=== PATIENT | female | born 1950 | race African-American/Black ===

== ENCOUNTER 2017-08-25 12:10 | Emergency (ER) | payer OTHER ==
[~2017-08-25] VITALS: Ht 167.6 cm; Wt 131.1 kg
--- NOTE | ~2017-08-25 | EKG ---
[place] [address] [address] [facility] [place] [address] ELECTROCARDIOGRAM REPORT Name: JACKSON APPIAH [id number] Admission: 08/25/17 Attend Phys: Discharge: Date of : 54 Report #: [id number] THIS REPORT FOR: //name// [facility] ED Test Date: 2017-08-25 Test Time: 13:08:25 Pat Name: JACKSON APPIAH Department: Room: Gender: F Window Clerk: KELVINJOSEFA : 1950 Requested By: Shahid Parr Order Number: [id number] MD: Emil Lemons Measurements Intervals [place] Rate: 65 P: 41 [place]: 158 QRS: 9 QRSD: 96 T: 17 QT: 437 QTc: 455 Interpretive Statements Sinus rhythm No significant abnormality No previous ECG available for comparison Electronically Signed On 08-25-2017 17:18:51 EXPERIENCE DESIGN DIRECTOR by Emil Lemons [email or web address] <ELECTRONICALLY SIGNED> By: Emil Lemons MD, [facility] 08/25/17 1718 1308 1308 Emil Lemons MD, FACC /EPI
[~2017-08-25 12:10] MED LIST: BAYER CHEWABLE81 MG PO; CYCLOBENZAPRINE5 MG PO; HUMALOG100 UNIT/1 SUBQ; HYDROCHLOROTHIA25 M2 PO; LANTUS100 UNIT/M SUBQ; LISINOPRIL30 MG PO; LOVASTATIN 20 M20 MG PO; METFORMIN HCL500 MG PO; NEURONTIN 300300 M1 PO; OMEPRAZOLE20 M2 PO
[2017-08-25 13:03] LABS: BASOPHILS 1.1 % (0.0-2.0); HEMATOCRIT 34.3 % (37.0-47.0); HEMOGLOBIN 11.1 gm/dL (12.0-15.0); LYMPHOCYTES 41.2 % (24.0-44.0); MCH 28.2 pg (26.0-34.0); MCHC 32.4 g/dL (28.0-37.0); MCV 87.2 fL (80.0-100.0); MONOCYTES 5.9 % (1.0-8.0); PLATELET COUNT 216 thou/uL (150-400); POLYS 49.8 % (36.0-66.0); RBC 3.93 mil/uL (4.20-5.00); RDW 14.1 % (10.5-14.5)
[2017-08-25 13:12] LABS: ANION GAP 7 mmol/L (7-16); BUN 13 mg/dL (7-18); CALCIUM 9.1 mg/dL (8.5-10.1); CHLORIDE 102 mmol/L (98-107); CO2 31 mmol/L (21-32); CREATININE 0.9 mg/dL (0.6-1.0); GLUCOSE 128 mg/dL (74-106); POTASSIUM 3.8 mmol/L (3.5-5.1); SODIUM 140 mmol/L (136-145)
[2017-08-25 13:21] LABS: TROPONIN-I < 0.04 ng/mL (<0.06)
[2017-08-25] MEDS ORDERED: CARVEDILOL12.5 MG PO (13:32)
[2017-08-25] MEDS ORDERED: ATORVASTATIN CA40 MG PO (13:32)
[2017-08-25] MEDS ORDERED: LOSARTAN-HCTZ1 EAC1 PO (13:33)
== END 2017-08-25 15:00 | disposition home or self-care (01) ==
LOC: ER 12:10
PROVIDERS: Emergency Medicine
DX: I10 Essential (primary) hypertension (principal); E11.9 Type 2 diabetes mellitus without complications; Z88.6 Allergy status to analgesic agent; Z91.040 Latex allergy status; Z79.4 Long term (current) use of insulin; Z90.710 Acquired absence of both cervix and uterus

== ENCOUNTER 2017-11-01 05:17 | Emergency (ER) | payer OTHER ==
[~2017-11-01] VITALS: Ht 167.6 cm; Wt 113.4 kg
[~2017-11-01 05:17] MED LIST changes: +ATORVASTATIN CA40 MG PO; +CARVEDILOL12.5 MG PO; +LOSARTAN-HCTZ1 EAC1 PO
[2017-11-01] MEDS ORDERED: ATENOLOL 100MG100 MG PO (05:39)
[2017-11-01 05:46] LABS: ABSOLUTE NEUTROPHILS 5.2 thou/uL (1.4-8.2); BASOPHILS 0.4 % (0.0-2.0); EOSINOPHILS 0.4 % (0.0-3.0); HEMOGLOBIN 12.1 gm/dL (12.0-15.0); LYMPHOCYTES 13.9 % (24.0-44.0); MCH 28.5 pg (26.0-34.0); MCHC 32.7 g/dL (28.0-37.0); PLATELET COUNT 221 thou/uL (150-400); POLYS 81.3 % (36.0-66.0); RBC 4.25 mil/uL (4.20-5.00); RDW 14.7 % (10.5-14.5); WBC 6.4 thou/uL (4.0-11.0)
[2017-11-01 05:57] LABS: ANION GAP 7 mmol/L (7-16); BUN 15 mg/dL (7-18); CALCIUM 9.4 mg/dL (8.5-10.1); CHLORIDE 105 mmol/L (98-107); CO2 30 mmol/L (21-32); GLUCOSE 76 mg/dL (74-106); POTASSIUM 3.7 mmol/L (3.5-5.1); SODIUM 142 mmol/L (136-145)
[2017-11-01 06:03] LABS: ALBUMIN 3.8 g/dL (3.4-5.0); DIRECT BILIRUBIN < 0.1 mg/dL (<0.1-0.3); LIPASE 67 U/L (73-393); SGOT 14 U/L (15-37); SGPT 21 U/L (30-65); TOTAL BILIRUBIN 0.2 mg/dL (<0.1-1.0); TOTAL PROTEIN 8.3 g/dL (6.4-8.2)
[2017-11-01 07:46] LABS: URINE BILIRUBIN NEGATIVE (Negative); URINE BLOOD 2+ (Negative); URINE CLARITY CLEAR; URINE COLOR YELLOW; URINE GLUCOSE-RANDOM* NEGATIVE (Negative); URINE KETONES NEGATIVE (Negative); URINE LEUKOCYTES-REFLEX NEGATIVE (Negative); URINE NITRITE-REFLEX NEGATIVE (Negative); URINE PROTEIN (DIPSTICK) TRACE (Negative); URINE UROBILINOGEN 0.2 E.U./dl (0.2-1.0)
[2017-11-01 08:24] VITALS: BP 147/71
[2017-11-01 08:33] LABS: BACTERIA-REFLEX 1-9 Few /HPF (None Seen); CASTS None Seen /LPF (None Seen); CRYSTALS None Seen /LPF (None Seen); SQUAMOUS 4-10 Moderate /LPF (0-3); URINE RBC 0-2 Rare /HPF (0-2); URINE WBC-REFLEX 0-5 Rare /HPF (0-5)
== END 2017-11-01 08:27 | disposition home or self-care (01) ==
LOC: ER 05:17
PROVIDERS: Emergency Medicine
DX: E11.649 Type 2 diabetes mellitus with hypoglycemia without coma (principal); I10 Essential (primary) hypertension; Z90.710 Acquired absence of both cervix and uterus; Z88.6 Allergy status to analgesic agent; Z91.040 Latex allergy status; Z79.4 Long term (current) use of insulin

== ENCOUNTER 2018-07-01 19:42 | Emergency (ER) | payer OTHER ==
[~2018-07-01] VITALS: Ht 167.6 cm; Wt 79.4 kg
[~2018-07-01 19:42] MED LIST changes: +ATENOLOL 100MG100 MG PO
[2018-07-01] MEDS ORDERED: NORFLEX100 MG PO (20:52)
[2018-07-01] MEDS ORDERED: PREDNISONE 20 M20 MG PO (21:07)
[2018-07-01 21:17] VITALS: BP 161/73
== END 2018-07-01 21:18 | disposition home or self-care (01) ==
LOC: ER 19:42
DX: S16.1XXA Strain of muscle, fascia and tendon at neck level, initial encounter (principal); S29.012A Strain of muscle and tendon of back wall of thorax, initial encounter; I10 Essential (primary) hypertension; E11.9 Type 2 diabetes mellitus without complications; Z88.6 Allergy status to analgesic agent; Z91.040 Latex allergy status; Z90.710 Acquired absence of both cervix and uterus; Z90.49 Acquired absence of other specified parts of digestive tract; Z79.4 Long term (current) use of insulin; V89.2XXA Person injured in unspecified motor-vehicle accident, traffic, initial encounter; Y92.89 Other specified places as the place of occurrence of the external cause; Y93.89 Activity, other specified; Y99.8 Other external cause status

== ENCOUNTER 2019-04-03 07:29 | Emergency (ER) | payer OTHER ==
[~2019-04-03] VITALS: Ht 167.6 cm; Wt 104.3 kg
[~2019-04-03 07:29] MED LIST changes: +NORFLEX100 MG PO; +PREDNISONE 20 M20 MG PO
[2019-04-03 08:06] LABS: URINE BILIRUBIN NEGATIVE (Negative); URINE BLOOD NEGATIVE (Negative); URINE CLARITY CLEAR; URINE COLOR YELLOW; URINE GLUCOSE-RANDOM* NEGATIVE (Negative); URINE KETONES NEGATIVE (Negative); URINE LEUKOCYTES NEGATIVE (Negative); URINE NITRITE NEGATIVE (Negative); URINE PROTEIN (DIPSTICK) NEGATIVE (Negative); URINE SPECIFIC GRAVITY <= 1.005 (1.005-1.035)
[2019-04-03] MEDS ORDERED: TRAMADOL 50 MG50 MG PO (08:07)
[2019-04-03] MEDS ORDERED: NORFLEX100 MG PO (08:07)
[2019-04-03 08:17] VITALS: BP 114/59
== END 2019-04-03 08:17 | disposition home or self-care (01) ==
LOC: ER 07:29
PROVIDERS: Emergency Medicine
DX: M54.5 Low back pain (principal); M62.838 Other muscle spasm; I10 Essential (primary) hypertension; E11.9 Type 2 diabetes mellitus without complications; E66.9 Obesity, unspecified; Z68.37 Body mass index [BMI] 37.0-37.9, adult; Z90.710 Acquired absence of both cervix and uterus; Z90.49 Acquired absence of other specified parts of digestive tract; Z79.4 Long term (current) use of insulin; Z91.040 Latex allergy status; Z88.6 Allergy status to analgesic agent

== ENCOUNTER 2019-05-18 17:35 | Emergency (ER) | payer OTHER ==
[~2019-05-18] VITALS: Ht 167.6 cm; Wt 83.9 kg
[~2019-05-18 17:35] MED LIST changes: +TRAMADOL 50 MG50 MG PO
[2019-05-18] MEDS ORDERED: MICARDIS HCT 41 EACH PO ×2 (19:27→19:34)
[2019-05-18] MEDS ORDERED: NAPROXEN375 MG PO ×2 (19:27→19:34)
[2019-05-18 20:10] VITALS: BP 196/87
== END 2019-05-18 20:11 | disposition home or self-care (01) ==
LOC: ER 17:35
DX: S83.8X1A Sprain of other specified parts of right knee, initial encounter (principal); E11.649 Type 2 diabetes mellitus with hypoglycemia without coma; I10 Essential (primary) hypertension; M79.651 Pain in right thigh; W00.0XXA Fall on same level due to ice and snow, initial encounter; Y92.89 Other specified places as the place of occurrence of the external cause; Y93.89 Activity, other specified; Y99.8 Other external cause status

== ENCOUNTER 2020-11-05 09:00 | Emergency (ER) | payer OTHER ==
[~2020-11-05] VITALS: Ht 167.6 cm; Wt 87.5 kg
[~2020-11-05 09:00] MED LIST changes: +MICARDIS HCT 41 EACH PO; +NAPROXEN375 MG PO
[2020-11-05] MEDS ORDERED: LOSARTAN-HCTZ1 EAC3 PO (09:11)
[2020-11-05] MEDS ORDERED: GLIMEPIRIDE4 MG PO (09:12)
--- NOTE | 2020-11-05 09:42 | EKG ---
[address] [employer] [place] [address] ELECTROCARDIOGRAM REPORT Name: JACKSON APPIAH Room #: [facility].R.#: [id number] Admission: Attend Phys: Discharge: Date of : 54 Report #: [id number] [facility] ED Test Date: 2020-11-05 Test Time: 09:22:26 Pat Name: JACKSON APPIAH Department: Room: Gender: [employer] Furn[employer] Operator: CLAIRE : 1950 Requested By: Colin Rebollar Order Number: [id number] MD: Emil Lemons Measurements Intervals [place] Rate: 58 P: 41 [place]: 149 QRS: 20 QRSD: 96 T: 36 QT: 440 QTc: 433 Interpretive Statements Sinus bradycardia Otherwise normal tracing Compared to ECG 08/25/2017 13:08:25 No significant changes Electronically Signed On 11-05-2020 9:42:18 CDT by Emil Lemons [email or web address] <ELECTRONICALLY SIGNED> By: Emil Lemons MD, [facility] 11/05/2042 1 1 Emil Lemons MD, FACC /EPI
[2020-11-05 09:45] LABS: ABSOLUTE NEUTROPHILS 3.5 thou/uL (1.4-8.2); BASOPHILS 0.9 % (0.0-2.0); EOSINOPHILS 3.9 % (0.0-3.0); HEMATOCRIT 24.7 % (37.0-47.0); HEMOGLOBIN 7.7 gm/dL (12.0-15.0); MCH 27.3 pg (26.0-34.0); MCHC 31.2 g/dL (28.0-37.0); MCV 87.3 fL (80.0-100.0); MONOCYTES 8.2 % (1.0-8.0); PLATELET COUNT 243 thou/uL (150-400); RBC 2.83 mil/uL (4.20-5.00); RDW 15.4 % (10.5-14.5); WBC 5.6 thou/uL (4.0-11.0)
[2020-11-05 09:50] LABS: ANION GAP 8 mmol/L (7-16); BUN 20 mg/dL (7-18); CALCIUM 8.7 mg/dL (8.5-10.1); CHLORIDE 107 mmol/L (98-107); CO2 28 mmol/L (21-32); CREATININE 1.3 mg/dL (0.6-1.0); GLUCOSE 98 mg/dL (74-106); POTASSIUM 4.1 mmol/L (3.5-5.1); SODIUM 143 mmol/L (136-145)
[2020-11-05 10:00] LABS: ALBUMIN 3.3 g/dL (3.4-5.0); SGOT 26 U/L (15-37); SGPT 39 U/L (30-65); TOTAL BILIRUBIN 0.5 mg/dL (0.2-1.0); TOTAL PROTEIN 7.1 g/dL (6.4-8.2); TROPONIN-I <0.06 ng/mL (<0.06)
[2020-11-05] MEDS ORDERED: LASIX 20 MG TAB20 MG PO (10:18)
[2020-11-05 10:24] VITALS: BP 151/66
== END 2020-11-05 10:24 | disposition home or self-care (01) ==
LOC: ER 09:00
PROVIDERS: Emergency Medicine
DX: R06.00 Dyspnea, unspecified (principal); D64.9 Anemia, unspecified; R79.89 Other specified abnormal findings of blood chemistry; I10 Essential (primary) hypertension; E11.9 Type 2 diabetes mellitus without complications; Z91.040 Latex allergy status; Z79.899 Other long term (current) drug therapy; Z79.82 Long term (current) use of aspirin; Z79.4 Long term (current) use of insulin; Z90.710 Acquired absence of both cervix and uterus